=== PATIENT | male | born 1995 | race Asian ===

== ENCOUNTER 2019-03-17 09:04 | Emergency (ER) | payer OTHER ==
[~2019-03-17] VITALS: Ht 175.3 cm; Wt 78.7 kg
[2019-03-17 09:17] VITALS: BP 135/63; PULSE 69; RESP 18; Ht 175.3 cm; Wt 78.7 kg
== END 2019-03-17 11:34 | disposition home or self-care (01) ==
LOC: FTE 09:04
DX: M79.661 Pain in right lower leg (principal); M79.662 Pain in left lower leg
CPT/HCPCS: 99282